=== PATIENT | female | born 1975 | race Two or more races ===

== ENCOUNTER 2024-09-16 20:03 | Emergency (ER) | payer MEDICARE, MEDICAID ==
[2024-09-16 20:37] VITALS: BP 119/75; PULSE 93
[2024-09-16 21:19] LABS: BASOPHILS PERCENT AUTO 0.2 % (0.0-1.0); EOSINOPHILS PERCENT AUTO 10.4 % (1.0-3.0); HEMATOCRIT 26.8 % (37.0-47.0); HEMOGLOBIN 8.4 g/dL (12.0-16.0); LYMPHOCYTES PERCENT AUTO 20.5 % (20.5-50.1); MEAN CORPUSCULAR HEMOGLOBIN 28.5 pg (27.0-34.0); MEAN CORPUSCULAR HGB CONC 31.3 g/dL (33.0-35.0); MEAN CORPUSCULAR VOLUME 90.8 fL (80-100); NEUTROPHILS PERCENT AUTO 56.9 % (42.2-75.2); PLATELET COUNT,PLT 424 10^3/uL (150-450); RED BLOOD CELL COUNT 2.95 10^6/uL (4.2-5.4); WHITE BLOOD CELL COUNT,WBC 5.7 10^3/uL (5.0-10.0)
[2024-09-16 21:39] LABS: ALANINE AMINOTRANSFERASE,ALT 17 U/L (14-59); ALBUMIN 2.8 g/dL (3.4-5.0); ALKALINE PHOSPHATASE 175 U/L (46-116); ASPARTATE AMNIOTRANSFERASE,AST 13 U/L (15-37); BILIRUBIN TOTAL 0.2 mg/dL (0.2-1.0); BLOOD UREA NITROGEN,BUN 20 mg/dL (7-18); BUN/CREATININE RATIO 17.2 (No establ ref range); CALCIUM 8.8 mg/dL (8.5-10.1); CARBON DIOXIDE,CO2 25 mmol/L (21-32); CHLORIDE,CL 101 mmol/L (98-107); CREATININE 1.16 mg/dL (0.55-1.02); GLUCOSE RANDOM 188 mg/dL (70-99); MAGNESIUM 1.5 mg/dL (1.8-2.4); POTASSIUM,K 5.7 mmol/L (3.5-5.1)
[2024-09-16 21:49] LABS: ANION GAP 10.7 mEq/L (7-13); SODIUM,NA 131 mmol/L (136-145)
[2024-09-16 21:50] LABS: A/G RATIO 0.67; ESTIMATED GFR 57 mL/min (>=60)
[2024-09-16] MEDS: Albuterol/Ipratropium 3.0-0.5 MG/3 ML Neb Soln NEB ONE (21:58)
== END 2024-09-16 22:28 | disposition left against medical advice (07) ==
LOC: DL.ED 20:03
DX: R60.0 Localized edema (principal); E11.9 Type 2 diabetes mellitus without complications; I10 Essential (primary) hypertension; Z90.49 Acquired absence of other specified parts of digestive tract; Z79.899 Other long term (current) drug therapy
CPT/HCPCS: 36415; 80053; 83735; 85025; 85379; 87040; 99283; A9270; J1642

== ENCOUNTER 2024-10-04 10:49 | Emergency (ER) | payer MEDICARE, MEDICAID ==
[2024-10-04 11:41] LABS: A/G RATIO 0.68; ALANINE AMINOTRANSFERASE,ALT 17 U/L (14-59); ALKALINE PHOSPHATASE 204 U/L (46-116); ANION GAP 13.5 mEq/L (7-13); ASPARTATE AMNIOTRANSFERASE,AST 12 U/L (15-37); BASOPHILS PERCENT AUTO 0.2 % (0.0-1.0); BILIRUBIN TOTAL 0.2 mg/dL (0.2-1.0); BLOOD UREA NITROGEN,BUN 21 mg/dL (7-18); BUN/CREATININE RATIO 22.3 (No establ ref range); CALCIUM 9.3 mg/dL (8.5-10.1); CARBON DIOXIDE,CO2 28 mmol/L (21-32); CHLORIDE,CL 101 mmol/L (98-107); CREATININE 0.94 mg/dL (0.55-1.02); EOSINOPHILS PERCENT AUTO 10.8 % (1.0-3.0); ESTIMATED GFR 73 mL/min (>=60); GLUCOSE RANDOM 328 mg/dL (70-99); HEMATOCRIT 33.9 % (37.0-47.0); HEMOGLOBIN 11.7 g/dL (12.0-16.0); LYMPHOCYTES PERCENT AUTO 16.3 % (20.5-50.1); MEAN CORPUSCULAR HEMOGLOBIN 30.2 pg (27.0-34.0); MEAN CORPUSCULAR HGB CONC 34.5 g/dL (33.0-35.0); MEAN CORPUSCULAR VOLUME 87.6 fL (80-100); MONOCYTES PERCENT AUTO 8.4 % (2-8); NEUTROPHILS PERCENT AUTO 64.3 % (42.2-75.2); PLATELET COUNT,PLT 222 10^3/uL (150-450); POTASSIUM,K 5.5 mmol/L (3.5-5.1); PROTEIN TOTAL,TP 7.4 g/dL (6.4-8.2); RED BLOOD CELL COUNT 3.87 10^6/uL (4.2-5.4); SODIUM,NA 137 mmol/L (136-145); WHITE BLOOD CELL COUNT,WBC 4.7 10^3/uL (5.0-10.0)
[2024-10-04 12:16] VITALS: BP 172/95; PULSE 82
== END 2024-10-04 12:12 | disposition home or self-care (01) ==
LOC: DL.ED 10:49
DX: E87.5 Hyperkalemia (principal); R60.0 Localized edema; I10 Essential (primary) hypertension; E11.65 Type 2 diabetes mellitus with hyperglycemia; Z88.5 Allergy status to narcotic agent; Z79.899 Other long term (current) drug therapy; Z79.84 Long term (current) use of oral hypoglycemic drugs; Z79.4 Long term (current) use of insulin; Z90.49 Acquired absence of other specified parts of digestive tract; I21.A9 Other myocardial infarction type
CPT/HCPCS: 36415; 80053; 83880; 85025; 93005; 99284; 99285